=== PATIENT | male | born 1995 | race African-American/Black ===

== ENCOUNTER 2017-11-24 05:15 | Emergency (ER) | payer OTHER ==
[~2017-11-24] VITALS: Ht 175.3 cm; Wt 76.9 kg
[2017-11-24] MEDS ORDERED: MOTRIN800 MG PO (06:25)
[2017-11-24] MEDS ORDERED: NORCO 7.5/321 TABLET PO (06:25)
[2017-11-24 06:44] VITALS: BP 146/102
[2017-11-25] MEDS ORDERED: PERCOCET 5/31 TABLET PO (16:47)
== END 2017-11-24 06:45 | disposition home or self-care (01) ==
LOC: EME 05:15
PROC: 3E0234Z Introduction of Serum, Toxoid and Vaccine into Muscle, Percutaneous Approach (ICD-10-PCS; principal; 2017-11-24)
DX: S97.81XA Crushing injury of right foot, initial encounter (principal); S90.811A Abrasion, right foot, initial encounter; W23.0XXA Caught, crushed, jammed, or pinched between moving objects, initial encounter; Y99.0 Civilian activity done for income or pay; Z23 Encounter for immunization
CPT/HCPCS: 73610; 99281; 99284

== ENCOUNTER 2017-11-25 13:55 | Emergency (ER) | payer OTHER ==
[~2017-11-25] VITALS: Ht 175.3 cm; Wt 75.2 kg
[~2017-11-25 13:55] MED LIST: MOTRIN800 MG PO; NORCO 7.5/321 TABLET PO
[2017-11-25] MEDS ORDERED: PERCOCET 5/31 TABLET PO (16:47)
[2017-11-25 16:51] VITALS: BP 137/90
== END 2017-11-25 16:52 | disposition home or self-care (01) ==
LOC: EME 13:55
DX: S90.31XA Contusion of right foot, initial encounter (principal); M79.89 Other specified soft tissue disorders; W23.0XXA Caught, crushed, jammed, or pinched between moving objects, initial encounter; Y99.0 Civilian activity done for income or pay
CPT/HCPCS: 73630; 99281; 99284; J3010